=== PATIENT | male | born 1990 | race Caucasian/White ===

== ENCOUNTER 2021-02-18 20:36 | Emergency (ER) | payer MEDICAID, SELFPAY ==
[2021-02-18] MEDS ORDERED: Morphine 4 MG/ML VIAL ONE (22:45)
[2021-02-18] MEDS ORDERED: Ondansetron PF 4 MG/2 ML Vial ONE (22:46)
[2021-02-18] MEDS ORDERED: Boostrix 0.5 ML (Tdap) VIAL ONE (23:23)
[2021-02-18] MEDS ORDERED: Bacitracin 1 PK ONE ×2 (23:41→23:55)
== END 2021-02-19 00:59 | disposition home or self-care (01) ==
LOC: CSHERS 20:36
DX: S02.0XXA Fracture of vault of skull, initial encounter for closed fracture (principal); S02.121A Fracture of orbital roof, right side, initial encounter for closed fracture; F17.210 Nicotine dependence, cigarettes, uncomplicated; W22.8XXA Striking against or struck by other objects, initial encounter
CPT/HCPCS: 70450; 70486; 90715; J2270; J2405